=== PATIENT | male | born 1975 | race Caucasian/White ===

== ENCOUNTER 2018-01-09 20:31 | Emergency (ER) | payer OTHER ==
[2018-01-09] MEDS: LEVALBUTEROL (NEB) 1.25 MG/0.5 ML AMP INH (23:37)
[2018-01-09] MEDS: IPRATROPIUM (NEB) 0.5 MG/2.5 ML AMP NEB (23:37)
[2018-01-09] MEDS: KETOROLAC 30 MG INJ IM (23:41)
== END 2018-01-10 00:35 | disposition home or self-care (01) ==
LOC: E/R 01-10 00:35
DX: J20.9 Acute bronchitis, unspecified (principal); R07.89 Other chest pain
CPT/HCPCS: 71045; 93005; 94664; 96372; 99284-25